=== PATIENT | male | born 1960 | race American Indian/Alaskan Native ===

== ENCOUNTER 2019-08-23 21:07 | Observation (INO) | payer SELFPAY ==
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
[2019-08-23 23:13] LABS: Hematocrit 44.3 % (35.5-45.6); Hemoglobin 15.1 gm/dl (11.8-15.2); Mean Corpuscular HGB Conc 34 % (32-34); Mean Corpuscular Volume 99 fl (84-94); Platelet Count 288 K/mm3 (140-440); Red Blood Count 4.48 M/mm3 (3.65-5.03); Red Cell Distribution Width 12.6 % (13.2-15.2)
[2019-08-23 23:22] LABS: Basophils % (Auto) 0.6 % (0.0-1.8); Eosinophils # (Auto) 0.1 K/mm3 (0.0-0.4); Eosinophils % (Auto) 2.1 % (0.0-4.3); Lymphocytes # (Auto) 1.8 K/mm3 (1.2-5.4); Lymphocytes % (Auto) 46.2 % (13.4-35.0); Monocytes # (Auto) 0.5 K/mm3 (0.0-0.8); Monocytes % (Auto) 12.5 % (0.0-7.3)
[2019-08-23 23:51] LABS: Alanine Aminotransferase 19 units/L (7-56); Albumin 4.3 g/dL (3.9-5); BUN/Creatinine Ratio 16; Blood Urea Nitrogen 11 mg/dL (9-20); Calcium 9.6 mg/dL (8.4-10.2); Hemolysis Index 35
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
--- NOTE | 2019-08-24 05:12 | Emergency Department Report ---
ED Chest Pain HPI - General Chief Complaint: Chest Pain Stated Complaint: CHEST/HEAD PAIN Time Seen by Provider: 08/23/19 21:32 Source: patient, EMS Mode of arrival: Wheelchair Limitations: No Limitations - History of Present Illness MD Complaint: chest pain -: hour(s) Onset: during rest Pain Location: substernal Pain Radiation: none Severity: mild Severity scale (0 -10): 3 Quality: aching Consistency: intermittent Improves With: nitroglycerin, other (aspirin) Worsens With: nothing re: diaphoresis. denies: nausea, vomting, dyspnea, sense of impending doom Other Symptoms: denies: cough, fever, syncope, rash, acid taste in mouth, leg swelling, palpitations, burping - Related Data Allergies Allergy/AdvReac Type Severity Reaction Status Date / Time levofloxacin [From Levaquin] AdvReac Unknown Verified 08/23/19 21:36 Heart Score - HEART Score History: Highly suspicious EKG: Normal Age: 45-65 Risk factors: 1-2 risk factors Troponin: < normal limit HEART Score: 4 ED Review of Systems ROS: Stated complaint: CHEST/HEAD PAIN Other details as noted in HPI Other: GENERAL: No weight change, fatigue, fever, chills, or night sweats SKIN: No changes in skin or hair, no itching, no rashes, no jaundice HEAD: No trauma EYES: No blurriness, tearing, itching, acute visual loss, conjunctival discoloration, or scleral icterus EARS: No hearing loss, tinnitus, vertigo, or earache NOSE: No rhinorrhea, stuffiness, sneezing, itching, or epistaxis MOUTH: No bleeding gums, hoarseness, sore throat, or swelling CARDIAC: Chest pain. No new murmur, palpitations, dyspnea on exertion, orthopnea, PND, or edema RESPIRATORY: No shortness of breath, wheeze, cough, sputum production, hemoptysis GI: No abdominal pain, nausea, vomiting, dysphagia, diarrhea, constipation, hematemesis, melena, hematochezia URINARY: No frequency, urgency, polyuria, dysuria, hematuria, or incontinence MUSCULOSKELETAL: No muscle weakness, joint stiffness, decrease in range of motion, redness, swelling NEUROLOGIC: No headache, syncope, loss of sensation, numbness, tingling, tremors, weakness, paralysis, seizures HEMATOLOGIC: No anemia, easy bruising, bleeding, petechiae, or purpura ENDOCRINE: No hot or cold intolerance, sweating, polyuria, polydipsia or, polyphagia no thyroid problems PSYCHIATRIC: No change in mood, no anxiety, no depression ED Past Medical Hx - Past Medical History Hx Hypertension: Yes - Surgical History Past Surgical History?: Yes Hx Cholecystectomy: Yes - Social History Smoking Status: Former Smoker Substance Use Type: Alcohol ED Physical Exam - General Limitations: No Limitations - Other Other exam information: GENERAL: Patient in no acute distress HEAD: Normocephalic, atraumatic EYES: PERRLA, EOM intact, no scleral icterus, no conjunctival hemorrhage, visual mcelroy and acuity wnl NOSE: No tenderness, discharge, sinus tenderness MOUTH: No erythema, bleeding, exudate HEART: Regular rate and rhythm, no murmur, S1-S2 are auscultated, no edema, pulses are symmetric LUNGS: No respiratory distress. Bilateral breath sounds, No tachypnea, No retractions, No wheezing, rales, rhonchi ABDOMEN: Normal bowel sounds, abdomen soft, no tenderness, no rebound, no guarding, no distention, no masses, no CVA tenderness MUSCULOSKELETAL: Normal joint range of motion, no redness, no swelling, no tenderness NEUROLOGIC: GCS 15, Alert and Oriented x3, Cranial nerves intact, normal sensation, normal strength, no cerebellar deficit, NIHSS 0 PSYCHIATRIC: No homicidal or suicidal ideation, no anxiety, no depression, no hallucinations SKIN: Skin is warm and dry, no wounds, no rashes ED Course Vital Signs 08/23/19 08/23/19 21:25 21:33 Temperature 98.0 F 98 F Pulse Rate 68 68 Respiratory 18 18 Rate Blood Pressure 149/83 Blood Pressure 149/83 [Right] O2 Sat by Pulse 98 100 Oximetry ED Medical Decision Making - Lab Data Result diagrams: 08/23/19 22:41 08/23/19 22:41 Laboratory Results - last 24 hr 08/23/19 08/23/19 08/24/19 22:41 22:41 00:57 WBC 3.8 L RBC 4.48 Hgb 15.1 Hct 44.3 MCV 99 H MCH 34 H MCHC 34 RDW 12.6 L Plt Count 288 Lymph % (Auto) 46.2 H Mchenry % (Auto) 12.5 H Eos % (Auto) 2.1 Baso % (Auto) 0.6 Lymph # 1.8 Mchenry # 0.5 Eos # 0.1 Baso # 0.0 Seg Neutrophils % 38.6 L Seg Neutrophils # 1.5 L Sodium 141 Potassium 4.9 Chloride 104.2 Carbon Dioxide 25 Anion Gap 17 BUN 11 Creatinine 0.7 L Estimated GFR > 60 BUN/Creatinine Ratio 16 Glucose 135 H Calcium 9.6 Total Bilirubin 0.60 AST 20 ALT 19 Alkaline Phosphatase 50 Troponin T < 0.010 < 0.010 Total Protein 7.5 Albumin 4.3 Albumin/Globulin Ratio 1.3 - EKG Data When compared to previous EKG there are: no significant change - Radiology Data Radiology results: report reviewed - Medical Decision Making Patient comfortable. Reports symptom improvement. Updated with results. Plan admit for further evaluation. Hospitalist updated and accepts admission. Critical care attestation.: If time is entered above; I have spent that time in minutes in the direct care of this critically ill patient, excluding procedure time. ED Disposition Clinical Impression: Chest pain Qualifiers: Chest pain type: unspecified Qualified Code(s): R07.9 - Chest pain, unspecified Disposition: OP ADMIT IP TO THIS HOSP Is pt being admited?: Yes Condition: Stable Instructions: Chest Pain (ED) Referrals: PRIMARY CARE, [Primary Care Provider] - 3-5 Days
[2019-08-24] MEDS ORDERED: ACETAMINOPHEN 325 MG TAB PO PRN ×2 (05:35→08:02)
[2019-08-24] MEDS ORDERED: ONDANSETRON 4 MG/2 ML INJ IV PRN ×2 (05:35→08:02)
[2019-08-24] MEDS ORDERED: oxyCODONE /ACETAMINOPHEN 5-325MG TAB PO PRN (08:02)
[2019-08-24] MEDS ORDERED: HYDROmorphone 1 MG/1 ML INJ IV PRN (08:02)
[2019-08-24] MEDS ORDERED: FAMOTIDINE 20 MG/2 ML INJ IV SCH (10:00)
[2019-08-24 12:02] VITALS: BP 139/83
--- NOTE | 2019-08-24 17:14 | Event Note ---
Date: 08/24/19 See H/p in reports Chest pain r/o DC protocol For TST today HTN
--- NOTE | 2019-08-24 17:18 | Discharge Summary ---
Providers - Providers Date of Admission: 08/24/19 05:48 Date of discharge: 08/24/19 Attending physician: JUJU METZ MD Primary care physician: STREET [employer] INSPECTOR Hospitalization Condition: Stable Pertinent studies: TST-normal Hospital course: Admitted for CP and High BP Stress test was normal To be discharge on BP meds Patient counselled about risk factor modification Disposition: DC-01 TO HOME OR SELFCARE Core Measure Documentation - Palliative Care Palliative Care/ Comfort Measures: Not Applicable - Core Measures Any of the following diagnoses?: none Exam - Constitutional Vitals: Temp Pulse Resp BP Pulse Ox 97.6 F 59 L 11 L 139/83 98 08/24/19 08:58 08/24/19 09:00 08/24/19 09:00 08/24/19 11:15 08/24/19 09:00 General appearance: Present: no acute distress, well-nourished - EENT Eyes: Present: PERRL ENT: hearing intact, clear oral mucosa - Neck Neck: Present: supple, normal ROM - Respiratory Respiratory effort: normal Respiratory: bilateral: CTA - Cardiovascular Heart rate: 78 Rhythm: regular Heart Sounds: Present: S1 & S2. Absent: rub, click - Extremities Extremities: no ischemia, pulses intact, pulses symmetrical, No edema Peripheral Pulses: within normal limits - Abdominal General gastrointestinal: Present: soft, non-tender, non-distended, normal bowel sounds Male genitourinary: Present: normal - Rectal Rectal Exam: deferred - Integumentary Integumentary: Present: clear, warm, dry - Musculoskeletal Musculoskeletal: gait normal, strength equal bilaterally - Psychiatric Psychiatric: appropriate mood/affect, intact judgment & insight - Neurologic Neurologic: CNII-XII intact, moves all extremities - Allied Health Allied health notes reviewed: nursing, case management Plan Activity: no restrictions Diet: low salt Follow up with: DARVIN WU MD [Primary Care Provider] - 3-5 Days YOJANA CARTER MD [Staff Physician] - 7 Days TIFFANY HECTOR MD [Staff Physician] - 7 Days
--- NOTE | 2019-08-24 17:42 | History and Physical Report ---
CHIEF COMPLAINT: Chest pain since a.m. HISTORY OF PRESENT ILLNESS: A 59-year-old male, -Citizen Of [place] with history of hypertension, comes in for left-sided chest pain since 1 day. Chest pain is retrosternal, nonradiating. No diaphoresis, no shortness of breath. No palpitations. No exacerbating or precipitating factors. No recent travel. PAST MEDICAL HISTORY: Significant for hypertension. PAST SURGICAL HISTORY: Cholecystectomy. FAMILY HISTORY: Hypertension. SOCIAL HISTORY: Former smoker and alcohol occasionally. REVIEW OF SYSTEMS: Significant for retrosternal chest pain, nonradiating. No diaphoresis. Otherwise, intermittent in nature. Pain is about 5-7 on a scale of 1-10. Otherwise, review of systems negative. PHYSICAL EXAMINATION: GENERAL: Young, elderly male, cooperative during examination. VITAL SIGNS: Blood pressure 149/83 and 153/87, 137/96 and 143/92. Temperature is 97.6, pulse is 53, respiratory rate is 11. HEENT: Unremarkable. Pupils equal and reactive. NECK: Supple, no lymphadenopathy, no thyromegaly. LUNGS: Clear to auscultation and percussion. Good air entry. CARDIOVASCULAR: S1, S2 heard. No gallop, no murmur, no rub. Apical impulse in left fifth intercostal space and midclavicular line. ABDOMEN: Soft and benign. No hepatosplenomegaly. No guarding, no rigidity. Hernial orifices are normal. EXTREMITIES: Good pedal pulses. No pedal edema. CENTRAL NERVOUS SYSTEM: Alert and oriented x 4, nonfocal exam. SKIN: Normal. DIAGNOSTIC DATA: EKG shows normal sinus rhythm, heart rate of 68 per minute, no acute ST-T wave changes. LABORATORY DATA: Significant for white count of 3800, H and H is 15.1 and 44.3, platelet count is 288,000. Electrolytes are normal. Glucose is 135, but A1c is 5.2. Troponin is less than 0.010. Chest x-ray, no acute findings. ASSESSMENT AND PLAN: 1. Chest pain, rule out myocardial infarction. The patient to get treadmill stress test today. Also, serial troponins; 2 sets are negative. 2. Hypertension. The patient initiated on losartan 100 mg once a day; the patient to be discharged on 100 mg once a day if stress test is normal. 3. Deep venous thrombosis prophylaxis, heparin 5000 q. 12. JOB# [id number] ROSE/ELLE
[2019-08-24] MEDS ORDERED: LOSARTAN 50 MG TAB PO SCH (20:00)
[2019-08-25] MEDS ORDERED: FLU VACC QUAD 2019-20 (3 YR UP)/PF 60 MCG/0.5 ML SYRINGE IM ONE (17:02)
== END 2019-08-24 19:00 | disposition home or self-care (01) ==
LOC: ED 21:07 → 4A 08-24 05:48
PROVIDERS: ADMIT Internal Medicine Geriatric Medicine; ATTEND Internal Medicine Geriatric Medicine
DX: R07.89 Other chest pain (principal); I10 Essential (primary) hypertension; Z87.891 Personal history of nicotine dependence; Z90.49 Acquired absence of other specified parts of digestive tract
CPT/HCPCS: 36415; 70450; 71046; 80053; 83036; 84484; 85025; 93005; 93010; 93017; 96374; 99284; G0378